=== PATIENT | male | born 1965 | race Caucasian/White ===

== ENCOUNTER 2019-05-18 22:23 | Emergency (ER) | payer OTHER ==
[~2019-05-18] VITALS: Ht 177.8 cm; Wt 110.0 kg
--- NOTE | 2019-05-18 22:43 | ED Lower Extremity ---
General Chief Complaint: Lower Extremity Stated Complaint: LEFT FOOT INJURY Nursing Triage Note: Patient states that he dropped a 150 lb roll of laminant on his left foot. Patient rates his pain at a 4. 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 Nursing Sepsis Screen: No Definite Risk Source: patient Exam Limitations: no limitations History of Present Illness Date Seen by Provider: May 18, 2019 Time Seen by Provider: 22:40 Initial Comments Patient complains of dropping a weight onto his left foot approximately 15 minutes prior to arrival with pain to the top of his left foot injury Pain/Injury Location: left foot Method of Injury: other (dropped weight on it ) Allergies and Home Medications Allergies Coded Allergies: codeine (Verified Allergy, Unknown, 05/18/19) Home Medications Diclofenac Sodium 50 Mg Tablet.dr, 50 MG PO TID Prescribed by: ELISHA CRUZ on 05/18/19 9833 Patient Home Medication List Home Medication List Reviewed: Yes Review of Systems Constitutional: no symptoms reported EENTM: no symptoms reported Respiratory: no symptoms reported Cardiovascular: no symptoms reported Gastrointestinal: no symptoms reported Past Ozxhneh-Tmkehi-Gdewzv Hx Past Med/Social Hx: Reviewed Nursing Past Med/Soc Hx Patient Social History Recent Foreign Travel: No Contact w/Someone Who Travel: No Recent Infectious Disease Expo: No Physical Abuse: No Sexual Abuse: No Mistreated: No Fear: No Physical Exam Vital Signs Vital Signs - First Documented 05/18/19 22:35 Temp 37.2 Pulse 93 Resp 18 B/P (MAP) 140/89 (106) Pulse Ox 95 O2 Delivery Room Air Capillary Refill : Less Than 3 Seconds Height, Weight, BMI Height: '" Weight: lbs. oz. 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, no motor/sensory deficits, alert Skin: normal color, warm/dry Progress/Results/Core Measures Results/Orders My Orders Orders - ELISHA CRUZ DO Foot 3 View Left (05/18/19 22:44) Vital Signs/I&O 05/18/19 22:35 Temp 37.2 Pulse 93 Resp 18 B/P (MAP) 140/89 (106) Pulse Ox 95 O2 Delivery Room Air Blood Pressure Mean: 106 Progress Progress Note : Progress Note Patient work dropped a weight approximately 150 pounds onto his left foot the top complains of throbbing-type pain was able to weight-bear no other injuries no other complaints until his contusion versus fracture plan x-ray symptomatic treatment Initial ECG Impression Date: May 18, 2019 Departure Communication (Admissions) X-rays reviewed in detail fractures seen and will be symptomatic treatment occupational medicine follow-up Impression Primary Impression: Contusion of left foot Disposition: HOME, SELF-CARE Condition: Stable Departure-Patient Inst. Referrals: [facility] [place] 3-4 days NO,LOCAL PHYSICIAN (PCP) Primary Care Physician Patient Instructions: Contusion (DC) Scripts Diclofenac Sodium (Diclofenac Sodium) 50 Mg Tablet. 50 MG PO TID for Pain for 5 Days, #15 TAB Prov: ELISHA CRUZ DO 05/18/19 ELISHA CRUZ DO May 18, 2019 22:43
[2019-05-18] MEDS ORDERED: DICL50TA6 PO (22:47)
[2019-05-18 23:23] VITALS: BP 140/89
--- NOTE | 2019-05-19 07:16 | Diagnostic Imaging Report ---
EXAMINATION: Left foot radiographs, 3 views. COMPARISON: None. HISTORY: 53-year-old male, dropped object on foot. FINDINGS: There is soft tissue swelling dorsally at the level of the metatarsals. There is a bipartite medial sesamoid. There is a multipart lateral sesamoid. The lateral sesamoid in particular potentially could be fracture defect. Recommend correlation for focal pain at this site. There is no otherwise identified potential acute fracture. IMPRESSION: 1. Potential fracture involving the lateral sesamoid of the first digit. Recommend correlation for focal pain in the area. Dictated by: Dictated on workstation # [id number]
== END 2019-05-18 23:23 | disposition home or self-care (01) ==
LOC: EDUNIT# 22:23 → ER FS 22:28
DX: S90.32XA Contusion of left foot, initial encounter (principal); Z88.5 Allergy status to narcotic agent; W20.8XXA Other cause of strike by thrown, projected or falling object, initial encounter
CPT/HCPCS: 73630

== ENCOUNTER 2019-08-28 21:16 | Emergency (ER) | payer OTHER ==
[~2019-08-28] VITALS: Ht 177.8 cm; Wt 113.4 kg
[~2019-08-28 21:16] MED LIST: DICL50TA6 PO
--- NOTE | 2019-08-28 21:36 | ED Upper Extremity ---
General Chief Complaint: Laceration Stated Complaint: FINGER LACERATION Nursing Triage Note: PT AMBULATE TO ROOM FS02 WITH C/O LAC TO RIGHT INDEX FINGER. PT STATES HE STUCK HIS FINGER IN A MACHINE AT WORK AND SOMEONE TURNED THE MACHINE ON. PT REQUESTING MORPHINE PRIOR TO UNWRAPPING FINGER. Nursing Sepsis Screen: No Definite Risk Source: patient History of Present Illness Date Seen by Provider: Aug 28, 2019 Time Seen by Provider: 21:34 Initial Comments 54-year-old male presenting with injury to his right index finger. He works at [employer] and was trying to help get a machine working again. In the process the machine got turned on and his right index fingertip got caught. He is unsure of his last tetanus shot. He is having pain and can still feel the tip of his finger but it was a near amputation. He has not taken anything for pain prior to arrival. He was holding pressure and trying to keep his finger in positions wasn't hanging down. Allergies and Home Medications Allergies Coded Allergies: codeine (Verified Allergy, Unknown, 05/18/19) Home Medications Cephalexin 500 Mg Tablet, 500 MG PO QID Prescribed by: ISAI GALVEZ on 08/28/19 2306 Diclofenac Sodium 50 Mg Tablet.dr, 50 MG PO TID Prescribed by: ELISHA CRUZ on 05/18/19 2247 Oxycodone HCl/Acetaminophen 1 Each Tablet, 1 EACH PO Q6H PRN for PAIN-SEVERE (8- 10) Prescribed by: ISAI GALVEZ on 08/28/19 2307 Patient Home Medication List Home Medication List Reviewed: Yes Review of Systems Constitutional: No chills, No fever EENTM: no symptoms reported Respiratory: no symptoms reported Cardiovascular: no symptoms reported Gastrointestinal: no symptoms reported Genitourinary: no symptoms reported Musculoskeletal: see HPI Skin: see HPI Psychiatric/Neurological: Denies Numbness, Denies Paresthesia Past Leeknfr-Gxqoqs-Skkphg Hx Past Med/Social Hx: Reviewed Nursing Past Med/Soc Hx Patient Social History Alcohol Use: Denies Use Recreational Drug Use: No Smoking Status: Current Everyday Smoker Type Used: Cigarettes 2nd Hand Smoke Exposure: Yes Recent Foreign Travel: No Contact w/Someone Who Travel: No Recent Infectious Disease Expo: No Physical Abuse: No Sexual Abuse: No Mistreated: No Fear: No Seasonal Allergies Seasonal Allergies: No Past Medical History Surgeries: Yes (Hernia Repair) Respiratory: No Cardiac: No Neurological: No Genitourinary: No Gastrointestinal: No Musculoskeletal: No Endocrine: No HEENT: No Cancer: No Psychosocial: No Physical Exam Vital Signs Vital Signs - First Documented 08/28/19 08/28/19 21:24 23:15 Temp 36.9 Pulse 72 Resp 18 B/P (MAP) 157/100 (119) Pulse Ox 98 O2 Delivery Room Air Capillary Refill : Less Than 3 Seconds Height, Weight, BMI Height: '" Weight: lbs. oz. kg; 35.00 BMI Method: General Appearance: WD/WN, mild distress Cardiovascular: normal peripheral pulses, regular rate, rhythm Respiratory: chest non-tender, lungs clear, normal breath sounds Hand: Right, deformity (right index fingertip), laceration (right distal index finger), limited ROM (decreased flexion and extension of the right index finger at the tip), nail injury (near amputation of the right distal fingertip on his index finger. This does go through the nail and bone is visible.), soft tissue tenderness Neurologic/Tendon: normal sensation, tendon function deficit (decreased flexion and extension of the distal fingertip on his right index finger) Neurologic/Psychiatric: alert, oriented x 3 Skin: normal color, warm/dry Procedures/Interventions Wound Location: Upper Extremities (right index fingertip) Wound Length (cm): 3.2 Wound's Depth, Shape: flap, nail-avulsed, contused tissue, bone Wound Explored: no foreign body removed (no foreign body seen to remove) Irrigated w/ Saline (ccs): 200 Betadine Prep?: Yes Anesthesia: 1% Lidocaine (digital block) Volume Anesthetic (ccs): 6 Wound Debrided: minimal Suture: Ethlion Suture Size: 4-0 Number of Sutures: 5 Layer Closure?: 1 Sterile Dressing Applied?: Yes Progress After obtaining verbal consent from the patient his index finger was anesthetized with a digital block using 1% plain lidocaine for total 6 ML's of medicine. Then the wound was irrigated with 200 ML's of normal saline with Betadine mixed in. The wound was scrubbed and minimal debridement of the open wound. There were no obvious foreign bodies to remove. Clean wound closed with 4-0 Ethilon for a total of 5 stitches. One of the stitches was through the nail. He tolerated the procedure well without any immediate complication. After loosely closing his wound he had brisk capillary refill still to the tip. Nursi staff dress the wound with the cleaning sterile bulky dressing and a splint. Progress/Results/Core Measures Results/Orders My Orders Orders - ISAI GALVEZ MD Cefazolin Injection (Ancef Injection) (08/28/19 21:56) Dipht,Pertuss(Acell),Tet Adult (Boostrix (08/28/19 22:00) Lidocaine 1% Inj 20 Ml (Xylocaine 1% Inj (08/28/19 21:56) Ed Iv/Invasive Line Start (08/28/19 21:57) Finger(S) (08/28/19 21:57) Rx-Oxycodone/Apap 5-325 Mg (Rx-Percocet (08/28/19 23:00) Medications Given in ED Current Medications Medications Dose Ordered Sig/Jorge Route Start Time Stop Time Status Last Admin Dose Admin Diphtheria/ Tetanus/Acell Pertussis 0.5 ml ONCE ONCE IM 08/28/19 22:00 08/28/19 22:01 DC 08/28/19 22:22 0.5 ML Oxycodone/ Acetaminophen 1 ea Q6H PRN PO 08/28/19 23:00 08/28/19 23:21 DC 08/28/19 23:12 1 EA Vital Signs/I&O 08/28/19 08/28/19 21:24 23:15 Temp 36.9 Pulse 72 71 Resp 18 18 B/P (MAP) 157/100 (119) 144/79 Pulse Ox 98 O2 Delivery Room Air Room Air 08/29/19 00:00 Intake Total 10 ml Balance 10 ml Blood Pressure Mean: 119 Progress Progress Note #1: Progress Note Ordered lidocaine to perform a digital block after initial exam to evaluate neurovascular status. He was still having brisk capillary refill of the flap of his right index fingertip. Ordered Ancef 1 g IV with him having exposed bone and fracture. The x-ray of his right index finger does demonstrate fracture and laceration of his right index finger at the fingertip. Progress Note #2: Progress Note Discussed with Dr. Brooks for orthopedics and he stated that García Camejo will be in the clinic here in [place] on Sunday and could recheck the wound. In the meantime I will try to loosely approximate the wound edges and then place his finger in a bulky dressing with a splint. Advised to keep the dressing clean dry and intact. Try to keep his finger elevated above his heart level to help with pain and swelling. Call first thing in the morning to [facility] orthopedics scheduling to find out when to come in to see García Camejo and Dr. Brooks I did advise the patient that while I was hopeful his fingertip would reattach and stay alive because of good capillary blood flow it would be a matter of time to see how his finger did. Stressed importance of follow-up with orthopedics and close monitoring. Counseled to ensure he takes the full course of antibiotics. Also prescribed a few pain pills if needed for severe pain. Diagnostic Imaging Diagonstic Imaging: Xray Plain Films/CT/US/NM/MRI: other (index finger of the right hand) Comments On my review of the 3 view films of his right index finger he has open transverse fracture of the distal phalanx with soft tissue injury. No obvious foreign bodies visualized Departure Impression Primary Impression: Laceration of right index finger w/o foreign body with damage to nail Qualified Codes: S61.310A - Laceration without foreign body of right index finger with damage to nail, initial encounter Additional Impression: Displaced fracture of distal phalanx of right index finger, initial encounter for open fracture Disposition: HOME, SELF-CARE Condition: Stable Departure-Patient Inst. Decision time for Depature: 23:01 Referrals: NO,LOCAL PHYSICIAN (PCP) Primary Care Physician TON BROOKS MD Patient Instructions: Finger Fracture (DC), Laceration Repair With Stitches (DC) Add. Discharge Instructions: Keep finger elevated above heart level to help with pain and swelling. Use pain medicine for severe pain. Use Ibuprofen or plain Acetaminophen for less severe pain. Keep dressing clean, dry and in place until you see Orthopedics Sunday in clinic for follow up. SUNNI Camejo will be in clinic with Dr. Brooks on Sunday at [facility] clinic here in [place]. Call [phone] after 8 am to reach the Orthopedics clinic and let them know that Dr. Brooks wanted you to see García Camejo or the Orthopedics clinic here in [place] on Sunday for follow up of your fingertip injury. All discharge instructions reviewed with patient and/or family. Voiced understanding. Scripts Oxycodone HCl/Acetaminophen (Oxycodone-Acetaminophen 5-325) 1 Each Tablet 1 EACH PO Q6H PRN for PAIN-SEVERE (8-10) MDD 6 for 3 Days, #12 TAB 0 Refills Prov: ISAI GALVEZ MD 08/28/19 Cephalexin (Cephalexin) 500 Mg Tablet 500 MG PO QID for finger laceration for 7 Days, #30 TAB 0 Refills Prov: ISAI GALVEZ MD 08/28/19 Work/School Note: Work Release Form Date Seen in the Emergency Department: Aug 28, 2019 Return to Work: Aug 29, 2019 Restrictions: Follow Up With [facility] Other Restrictions Listed Below: Keep wound clean, dry and covered. See Orthopedics for follow up ISAI GALVEZ MD Aug 28, 2019 21:36
[2019-08-28] MEDS ORDERED: ceFAZolin INJECTION 1,000 MG in WATER (STERILE) FOR INJECTION 10 ML IV STA (21:56)
[2019-08-28] MEDS ORDERED: LIDOCAINE 1% INJ 20 ML 20 ML VIAL INJ STA (21:56)
[2019-08-28] MEDS ORDERED: TETANUS,DIPTH,PERTUSS P/F (BOOSTRIX) 0.5 ML VIAL IM ONE (22:00)
[2019-08-28] MEDS ORDERED: RX-OXYCODONE/APAP 5-325 MG #4 TAB PK PO PRN (23:00)
[2019-08-28] MEDS ORDERED: CEPH500T PO (23:06)
[2019-08-28] MEDS ORDERED: OXYC-471 PO (23:06)
[2019-08-28 23:15] VITALS: BP 144/79
--- OUTSIDE RECORDS SUMMARY | 2019-08-28 23:52 | XMS REPORT | Continuity of Care Document ---
Author Organization Unknown Address Unknown Phone Unavailable Allergies Active Description Code Type Severity Reaction Onset Reported/Identified Relationship to Patient Clinical Status Yes codeine [id number] Drug Allergy Unknown N/A 05/18/2019 Medications There is no data. Problems Date Dx Coded Attending Type Code Diagnosis Diagnosed By 05/18/2019 [facility], ELISHA Cage Ot M79.6 72 PAIN IN LEFT FOOT 05/18/2019 [facility], ELISHA Cage Ot S90.32XA CONTUSION OF LEFT FOOT, INITIAL ENCOUNTE 05/18/2019 [facility], ELISHA Cage Ot W20.8XXA OTH CAUSE OF STRIKE BY THROWN, PROJECTED 05/18/2019 [facility], ELISHA Cage Ot Z88.5 ALLERGY STATUS TO NARCOTIC AGENT STATUS 05/21/2019 [facility], ELISHA Cage Ot M79.6 72 PAIN IN LEFT FOOT 05/21/2019 [facility], ELISHA Cage Ot S90.32XA CONTUSION OF LEFT FOOT, INITIAL ENCOUNTE 05/21/2019 [facility], ELISHA Cage Ot W20.8XXA OTH CAUSE OF STRIKE BY THROWN, PROJECTED 05/21/2019 [facility], ELISHA Cage Ot Z88.5 ALLERGY STATUS TO NARCOTIC AGENT STATUS Procedures There is no data. Results Test Result Range CBC - 05/29/18 08:03 WHITE BLOOD CELL COUNT 6.7 Thousand/uL 3 .8-10.8 RED BLOOD CELL COUNT 5.05 Million/uL 4.2 0-5.80 HEMOGLOBIN 14.9 g/dL 13.2-17.1 HEMATOCRIT 45.1 % 38.5-50.0 MCV 89.3 fL 80.0-100.0 MCH 29.5 pg 27.0-33.0 MCHC 33.0 g/dL 32.0-36.0 RDW 12.8 % 11.0-15.0 PLATELET COUNT 244 Thousand/uL 140-400 MPV 10.6 fL 7.5-12.5 ABSOLUTE NEUTROPHILS 4241 cells/uL 1500- 7800 ABSOLUTE LYMPHOCYTES 1655 cells/uL 850-3 900 ABSOLUTE MONOCYTES 650 cells/uL 200-950 ABSOLUTE EOSINOPHILS 107 cells/uL 15-500 ABSOLUTE BASOPHILS 47 cells/uL 0-200 NEUTROPHILS 63.3 % NRG LYMPHOCYTES 24.7 % NRG MONOCYTES 9.7 % NRG EOSINOPHILS 1.6 % NRG BASOPHILS 0.7 % NRG PSA - 05/29/18 08:03 PSA, TOTAL 0.7 ng/mL < OR = 4.0 TSH - 05/29/18 08:03 TSH 2.66 mIU/L 0.40-4.50 A1C - 05/29/18 08:03 HEMOGLOBIN A1c 5.7 % of total Hgb <5.7 Encounters ACCT No. Visit Date/Time Discharge Status Pt. Type Provider Facility Loc./Unit Complaint [id number] 05/29/2018 08:30:00 05/29/2018 23:59: 59 [facility] Outpatient YANET REID APRN [facility] [id number] 05/29/2018 08:30:00 Document Registration [id number] 05/18/2019 22:28:00 020 23:23:00 DIS Emergency ELISHA CRUZ DO [facility] ER FS LEFT FOOT INJURY
--- NOTE | 2019-08-29 05:49 | Diagnostic Imaging Report ---
INDICATION: Stuck finger in a machine at work. TECHNIQUE: Single view hand with 2 additional views right index finger, 10:03 PM. CORRELATION STUDY: None FINDINGS: Transversely oriented fracture through the distal phalanx of the index finger is present. There is approximately 2 mm of diastases present. Alignment otherwise anatomic. Apparent soft tissue defect and contour deformities also noted. The interphalangeal joint demonstrates overhanging osteophyte along its dorsal aspect. The proximal interphalangeal joint is maintained and unremarkable. Remainder of the hand appears to be intact. IMPRESSION: 1. Slightly diastased fracture at the distal phalanx index finger. Likely overlying soft tissue defect. No definitive soft tissue foreign body. Dictated by: Dictated on workstation # [id number]
== END 2019-08-28 23:15 | disposition home or self-care (01) ==
LOC: EDUNIT# 21:16 → ER FS 21:17
DX: S62.620B Displaced fracture of middle phalanx of right index finger, initial encounter for open fracture (principal); F17.210 Nicotine dependence, cigarettes, uncomplicated; Z23 Encounter for immunization; Z88.5 Allergy status to narcotic agent; W23.1XXA Caught, crushed, jammed, or pinched between stationary objects, initial encounter; Y92.59 Other trade areas as the place of occurrence of the external cause; Y99.0 Civilian activity done for income or pay
CPT/HCPCS: 73140; 90715

== ENCOUNTER → 2019-09-01 | Outpatient (CLI) | payer OTHER ==
[~2019-09-01] MED LIST changes: +CEPH500T PO; +OXYC-471 PO
--- NOTE | 2019-09-01 09:39 | Diagnostic Imaging Report ---
INDICATION: Followup fracture. COMPARISON: 08/28/2019 TECHNIQUE: 3 radiographs of the right hand 2nd digit dated 09/01/2019. FINDINGS: Recent transversely oriented fracture involving the distal aspect of the 2nd digit distal phalanx with associated overlying soft tissue injury is again identified. Overall alignment is minimally improved since the prior examination. A few small fracture fragments remain. Soft tissue gas lucencies have improved. No new fracture or dislocation. No destructive osseous process. IMPRESSION: Persistent slightly distracted fracture with associated soft tissue injury involving the distal phalanx of the 2nd digit as described above. No significant healing at this time. Distraction slightly improved when compared to prior exam. No new acute osseous abnormality. Dictated by: Dictated on workstation # [id number]
== END ==
LOC: RAD FS 09:12
PROVIDERS: ATTEND Nurse Practitioner
DX: S62.603B Fracture of unspecified phalanx of left middle finger, initial encounter for open fracture (principal)
CPT/HCPCS: 73140

== ENCOUNTER 2022-03-28 11:15 | Emergency (ER) | payer OTHER ==
[~2022-03-28] VITALS: Ht 175.3 cm; Wt 115.7 kg
[~2022-03-28 11:15] MED LIST changes: -OXYC-471 PO; +OXYC1TAB11 PO
[2022-03-28 11:20] VITALS: BP 177/88
[2022-03-28] MEDS ORDERED: TETANUS,DIPTH,PERTUSS P/F (BOOSTRIX) 0.5 ML VIAL IM ONE (11:45)
--- NOTE | 2022-03-28 11:50 | ED Head Injury ---
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 He denies any loss of consciousness, states he was knocked to the ground by the blow. He states he does not take any blood thinners. Laceration with mild bleeding present to the top of patient's head . Source: patient Exam Limitations: no limitations History of Present Illness Date Seen by Provider: Mar 28, 2022 Time Seen by Provider: 11:20 Initial Comments The patient is a 56-year-old male who presents with head injury with scalp laceration after accidentally hitting the top of his head off of post crew car driver. The injury occurred just prior to ED arrival. Patient denies loss of consciousness but reports feeling dizzy for several minutes. He denies headache but reports scalp surrounding area 8 cm apical parietal linear full-thickness laceration laceration. Also reports nose pain without deformity. Denies neck pain, blurred vision, nausea vomiting or memory loss. The injury was witnessed by his his spouse. The patient is not on aspirin or anticoagulation therapy. No other medical plaints or symptoms. Last known tetanus is greater than 8 years. Occurred: other Location: other Method of Injury: other Associated Systoms: Other Allergies and Home Medications Allergies Coded Allergies: codeine (Verified Allergy, Unknown, 05/18/19) Patient Home Medication List Home Medication List Reviewed: Yes Cephalexin (Cephalexin) 500 Mg Tablet, 500 MG PO QID Prescribed by: ISAI GALVEZ on 08/28/192305 Diclofenac Sodium (Diclofenac Sodium) 50 Mg Tablet.dr, 50 MG PO TID Prescribed by: ELISHA CRUZ on 05/18/192246 Oxycodone HCl/Acetaminophen (Oxycodone-Acetaminophen 5-325) 1 Each Tablet, 1 EACH PO Q6H PRN for PAIN-SEVERE (8-10) Prescribed by: ISAI GALVEZ on 08/28/192306 Review of Systems Review of Systems Constitutional: see HPI Eyes: See HPI Ears, Nose, Mouth, Throat: see HPI Respiratory: see HPI Cardiovascular: see HPI Gastrointestinal: see HPI Genitourinary: see HPI Musculoskeletal: see HPI Skin: see HPI Psychiatric/Neurological: See HPI Endocrine: See HPI Hematologic/Lymphatic: See HPI All Other Systems Reviewed Negative Unless Noted: No Past Eossapr-Vgvtur-Vctvwa Hx Patient Social History Tobacco Use?: Yes Smoking Status: Current Everyday Smoker Substance use?: No Alcohol Use?: No Pt feels they are or have been: No Seasonal Allergies Seasonal Allergies: No Past Medical History Surgeries: Yes (Hernia Repair) Respiratory: No Cardiac: No Neurological: No Genitourinary: No Gastrointestinal: No Musculoskeletal: No Endocrine: No HEENT: No Cancer: No Psychosocial: No Physical Exam Vital Signs Vital Signs - First Documented 03/28/22 11:20 Temp 36.6 Pulse 100 Resp 16 B/P (MAP) 177/88 (117) Pulse Ox 96 O2 Delivery Room Air Capillary Refill : Less Than 3 Seconds Height, Weight, BMI Height: '" Weight: lbs. oz. kg; 37.00 BMI Method: General Appearance: WD/WN, no apparent distress HEENT: PERRL/EOMI, normal ENT inspection, other (conjunctivae injected. 8 cm linear, full-thickness, apical parietal scalp laceration with contused tissue. No hematoma, step-off, or active bleeding. Wound is clean.) Neck: non-tender, full range of motion, supple Cardiovascular: regular rate, rhythm Respiratory: chest non-tender, lungs clear Psychiatric: alert, oriented x 3 Crainal Nerves: PERRL Coordination/Gait: normal finger to nose, normal gait Motor/Sensory: no motor deficit, no sensory deficit, no pronator drift Procedures/Interventions Suture Size: 4-0 Other Closure Supply: Wound Adhesive Progress/Results/Core Measures Results/Orders My Orders Orders - TANK CONTRERAS DO Dipht,Pertuss(Acell),Tet Adult (Boostrix (03/28/22 11:45) Vital Signs/I&O 03/28/22 11:20 Temp 36.6 Pulse 100 Resp 16 B/P (MAP) 177/88 (117) Pulse Ox 96 O2 Delivery Room Air Blood Pressure Mean: 117 Departure Communication (Admissions) Laceration repair procedure note. Patient scalp wound was cleansed with wound cleanser spray and explored. No foreign body present. The wound is clean. Wound closed with 2 packs of wound adhesive with excellent wound edge approximation. Tetanus updated. Patient with closed head injury without loss of consciousness. GCS 15 neurologically intact. Patient not on anticoagulation therapy. No indication for CT imaging at this time. Typical closed head injury and wound care instructions provided. Tetanus up-to-date. Return precautions reviewed. Patient verbalized understanding agreement with discharge instructions prior to departure. Impression Primary Impression: Closed head injury Additional Impression: Scalp laceration Disposition: 01 HOME, SELF-CARE Condition: Stable Departure-Patient Inst. Referrals: CANDIDO MEREDITH APRN (PCP) Primary Care Physician [facility] (Family) Primary Care Physician Patient Instructions: Concussion, Adult ED, Skin Glue for Minor Cuts Add. Discharge Instructions: You were evaluated in the emergency department for head injury and laceration. Please keep wound clean dry and avoid ointments and sprays. Take Tylenol ibuprofen for pain. Return to the ED if signs of wound infection or worsening head injury. Otherwise, follow-up concussion related instructions and handout. Follow-up with your PCP as needed. All discharge instructions reviewed with patient and/or family. Voiced understanding. TANK CONTRERAS DO Mar 28, 2022 11:50
== END 2022-03-28 11:58 | disposition home or self-care (01) ==
LOC: EDUNIT# 11:15 → ER FS 11:17
DX: S09.90XA Unspecified injury of head, initial encounter (principal); S01.01XA Laceration without foreign body of scalp, initial encounter; F17.200 Nicotine dependence, unspecified, uncomplicated; Z23 Encounter for immunization; W22.09XA Striking against other stationary object, initial encounter
CPT/HCPCS: 12002; 90715